=== PATIENT | female | born 1970 | race Caucasian/White ===

== ENCOUNTER 2016-10-13 08:14 | Day surgery (SDC) | payer OTHER ==
[~2016-10-13] VITALS: Ht 170.2 cm; Wt 60.9 kg
[2016-10-13 08:51] VITALS: Ht 170.2 cm; Wt 60.9 kg
[2016-10-13] MEDS ORDERED: RANITIDINE (08:53)
[2016-10-13 09:20] VITALS: BP 120/81; PULSE 62; RESP 12
[2016-10-13] MEDS ORDERED: LIDOCAINE 4% SOLUTION 50 ML BTL ONE (09:27)
[2016-10-13] MEDS ORDERED: FENTAnyl 50 MCG/ML VIAL ONE (09:56)
[2016-10-13] MEDS ORDERED: MIDAZOLAM 1 MG/ML 2 ML INJ ONE (09:56)
[2016-10-13 10:15] VITALS: BP 112/82; PULSE 53; RESP 18
--- NOTE | 2016-10-13 13:41 | GILP ---
DATE OF PROCEDURE: 10/13/2016 PROCEDURE: Esophagogastroduodenoscopy. PREOPERATIVE DIAGNOSIS: Patient presenting with a history of chronic heartburn, chronic abdominal p ain and dyspepsia, rule out peptic ulcer disease, esophagitis. POSTOPERATIVE DIAGNOSES: 1. Multiple superficial ulcers noted in the distal esophagus. 2. Patchy gastritis of mild degree noted all over the stomach. 3. Duodenum appeared normal. DESCRIPTION OF PROCEDURE: After informed written consent was obtained, 2 mg Versed, 50 mcg of fenta nyl was given as intravenous anesthesia. When the patient became somnolent, Olympus video upper endoscope was introduced into the oropharynx, then into the esophagus. Esophagus appeared to show multiple superficial ulcers just above the GE junction. Multiple biopsies and photographs were obtained. Scope at this time was advanced into th e stomach. Several areas of erythema noted at this time in the mucosa of the stomach. This is a mi ld degree of gastritis, some more moderate degree of gastritis noted in the fundus of the stomach. Biopsy was done from the antrum, the lesser curvature and the fundus to rule out H. pylori infection . Scope at this time was advanced into the stomach and to the duodenum. The entire duodenum appear ed normal up to the end of the third portion. No ulcers, no duodenitis noted. Scope at this time w as withdrawn. No additional abnormalities detected and the procedure was terminated. PLAN: Recommend proton pump inhibitor therapy of omeprazole 40 mg a day for 3 months. Dictated By: KESHA MARLOW/NTS Conf#: [id number] DID#: [id number] CC: SARANYA BOUDREAUX MD;*EndCC*
== END 2016-10-13 11:42 | disposition home or self-care (01) ==
LOC: GIL 08:14
PROVIDERS: ATTEND Internal Medicine Gastroenterology
DX: K21.0 Gastro-esophageal reflux disease with esophagitis (principal); K29.30 Chronic superficial gastritis without bleeding; K22.10 Ulcer of esophagus without bleeding
CPT/HCPCS: 43239; 88305; 88313; J2250; J3010; Z7610